=== PATIENT | female | born 1965 | race Caucasian/White ===

== ENCOUNTER → 2016-07-15 | Day surgery (SDC) | payer BC ==
[~2016-07-15] MED LIST: Buffered Lidocaine 1% SYR 3ML* 3 ML/SYR SYRINGE ONE; Bupivacaine 0.25% EPI 200,000* 30 ML SDV ONE; Dexamethasone IV* 4 MG/ML 1 ML (4 MG) ONE; EPHEDrine (Pressors)* 50 MG/ML VIAL ONE; HYDROcodone/ACETAMIN 5-325 MG* 1 TAB ONE; HYDROmorphone INJ* 1 MG/ML CARPUJECT SYRINGE ONE; Heparin VIAL(*) 5000 UNITS/ML VIAL (FIVE THOUSAND) ONE; Lidocaine 2% MPF* 2 ML VIAL ONE; Metoclopramide IV* 5 MG/ML 2 ML VIAL IV PRN; Metoclopramide IV* 5 MG/ML 2 ML VIAL ONE; Midazolam* 1 MG/ML 2 ML VIAL (2 MG) ONE; Ondansetron INJ* 2 MG/ML VIAL IV PRN; Ondansetron INJ* 2 MG/ML VIAL ONE; Propofol* 10 MG/ML 20 ML BTL IV PUSH ONE; Scopolamine 1.5 mg* PATCH ONE; Scopolamine 1.5 mg* PATCH TRANSDERM PRN; Succinylcholine* 20 MG/ML 10 ML VIAL ONE; ceFAZolin 2 GM PREMIX (*) 2 GM/50 ML BAG IVPB ONE; fentaNYL* 50 MCG/ML 2 ML VIAL (100 MCG VIAL) ONE
[2016-07-15] MEDS: fentaNYL* 50 MCG/ML 2 ML VIAL (100 MCG VIAL) IV PRN ×4 (11:57→12:25)
[2016-07-15] MEDS: HYDROmorphone INJ* 1 MG/ML CARPUJECT SYRINGE IV PRN ×5 (11:58→12:30)
[2016-07-15 14:20] VITALS: BP 112/60
== END | disposition home or self-care (01) ==
LOC: OR 06:20
PROVIDERS: ATTEND Plastic Surgery
DX: N62 Hypertrophy of breast (principal); M54.2 Cervicalgia; M54.9 Dorsalgia, unspecified
CPT/HCPCS: 88305; A9270-GY; J0330; J0690; J1100; J1170; J1644; J2250; J2405; J2704; J2765; J3010